=== PATIENT | female | born 1965 | race Caucasian/White ===

== ENCOUNTER → 2017-11-21 | Outpatient (CLI) | payer BC ==
--- NOTE | 2017-11-21 16:12 | RT STRESS TEST REPORT ---
FACILITY: [facility] - [place] PATIENT NAME: TIM SIMMONS : [id number] MR: [id number] V: [id number] EXAM DATE: ORDERING PHYSICIAN: DIANNA BAKER TECHNOLOGIST: Sher Acquisition Time: 2017-11-21 14:14:05 Total Exercise Time: 00:10:01 Test Indications: Chest Discomfort Medications: none Protocol: LAURA 2 Max HR: 166 BPM 97% of Pred: 170 BPM Max BP: 152/097 mmHG Max Work Load: 11.7 METS Images pending Confirmed by GAURI MORENO ([id number]) on 11/21/2017 4:10:42 PM Referred By: Dianna Baker Overread By: GAURI MORENO
--- NOTE | 2017-11-21 17:02 | RADIOLOGY IMAGING REPORT ---
FACILITY: [facility] - [place] PATIENT NAME: Alia Becerril : 1965 MR: [id number] V: [id number] EXAM DATE: ORDERING PHYSICIAN: ARTEMIO BILLINGS TECHNOLOGIST: Location: [facility] [place] Patient: Alia Becerril : 1965 Visit/Account:[id number] Date of Sevice: 11/21/2017 EXAMINATION: Single Isotope SPECT Imaging with Exercise and Gated SPECT Imaging DATE OF EXAMINATION: 11/21/2017 DATE OF INTERPRETATION: 11/21/2017 REQUESTING PHYSICIAN: ARTEMIO BILLINGS INDICATION: The patient is a 52-year-old female evaluated for chest pain. PROCEDURE: After informed consent the patient received an intravenous injection of 11.7 mCi of Tc-9 9m sestamibi followed at the appropriate time interval by rest imaging. The patient then exercised a ccording to the standard [place] protocol for 10:01 minutes achieving 11 METS. Resting heart rate was 65 bpm with a peak heart rate of 166 bpm which is 97 % of maximal predicted heart rate for age. Blo od pressure at rest was 128 / 75; blood pressure during exercise was 152 / 97. There was no chest pa in during exercise. Exercise was discontinued because of target heart rate achieved. Baseline EKG d emonstrates sinus rhythm. There were no EKG changes of ischemia at peak exercise. Approximately one minute and 30 seconds prior to the termination of exercise, the patient received an intravenous inje ction of 29.0 mCi of Tc-99m sestamibi followed by stress imaging. RAW DATA: Examination of the summed raw data revealed a good quality study. MYOCARDIAL PERFUSION: The tomographic images demonstrate normal myocardial perfusion with no evidenc e of infarct or ischemia. There is no TID. GATED IMAGES: The gated images demonstrate hyperdynamic ejection fraction >70%. IMPRESSION: 1. Normal exercise ECG. 2. Normal myocardial perfusion scan. 3. Hyperdynamic LV systolic function; LVEF >70%. 4. Based on the results of this exam, the patient appears to be at low risk for future cardiovascular events. Report Dictated By: Kel Jaffe at 11/21/2017 4:55 PM Report E-Signed By: Kel Jaffe at 11/21/2017 4:58 PM WSN:[id number]
== END ==
LOC: RESP 01:48
PROVIDERS: ATTEND Physician Assistant Medical
DX: R07.2 Precordial pain (principal)
CPT/HCPCS: 78452; 93017; A9500